=== PATIENT | male | born 1945 | race Two or more races ===

== ENCOUNTER 2018-03-01 13:14 | Emergency (ER) | payer SELFPAY ==
[~2018-03-01] VITALS: Ht 167.6 cm; Wt 113.4 kg
[2018-03-01] MEDS ORDERED: SODIUM BICARBONATE 8.4% INJ 50ML SYRINGE IV ONE (13:15)
[2018-03-01] MEDS ORDERED: EPINEPHrine HCL 1 MG/10 ML SYRG IV ONE (13:15)
[2018-03-01] MEDS ORDERED: CALCIUM CHLOR(10%) 100MG/ML 10ML SYRINGE IV ONE (13:15)
[2018-03-01] MEDS ORDERED: MIDAZOLAM HCL 5 MG/ML-1ML VIAL ONE ×2 (13:20→13:27)
[2018-03-01] MEDS ORDERED: PROPOFOL 100 ML IV SCH (13:26)
[2018-03-01] MEDS ORDERED: MIDAZOLAM DRIP 50 mg/50mL 50 ML IV SCH (13:26)
[2018-03-01 13:35] VITALS: BP 101/75
[2018-03-01] MEDS ORDERED: NOREPINEPHRINE 8 MG/250ML KIT 250 ML IV ONE (13:42)
[2018-03-01 13:52] LABS: Basophils # (auto) 0.1 uL; Basophils % (auto) 0.9 % (0.0-2.0); Eosinophils # (auto) 0.2 uL; Eosinophils % (auto) 1.9 % (0.0-7.0); Hematocrit 43.5 % (41.0-53.0); Hemoglobin 13.8 g/dL (13.5-17.5); Lymphocytes # (auto) 4.9 uL; Lymphocytes % (auto) 41.5 % (10.0-50.0); Mean Corpuscular Hgb Conc. 31.7 g/dL (32.0-36.0); Mean Corpuscular Volume 97.6 fL (80.0-100.0); Monocytes # (auto) 0.8 uL; Monocytes % (auto) 6.9 % (0.0-12.0); Neutrophils # (auto) 5.8 uL; Neutrophils % (auto) 48.8 % (37.0-80.0); Nucleated Red Blood Cells % 0.3 %; Platelet Count (auto) 220 10^3/uL (140-450); Red Blood Cells 4.46 10^6/uL (4.5-5.90); Red Cell Distribution Width 15.1 % (11.8-14.3); White Blood Cell 11.9 10^3/uL (4.4-10.8)
[2018-03-01 14:10] LABS: Albumin 2.7 g/dL (3.4-5.0); Calcium 6.9 mg/dL (8.5-10.1); Magnesium 2.2 mg/dL (1.6-2.6); Potassium 4.3 mmol/L (3.5-5.1)
[2018-03-01 14:12] LABS: Lactic Acid w/Reflex 6.1 mmol/L (0.4-2.0)
[2018-03-01 14:13] LABS: Bilirubin, Total 0.7 mg/dL (0.2-1.0)
[2018-03-01] MEDS ORDERED: EPINEPHrine HCL 1 MG/10 ML SYRG ONE (14:19)
== END 2018-03-01 21:56 | disposition expired ==
LOC: ER 13:14
DX: I46.9 Cardiac arrest, cause unspecified (principal); G92 Toxic encephalopathy; E11.9 Type 2 diabetes mellitus without complications; I10 Essential (primary) hypertension
CPT/HCPCS: 31500; 36415; 70450; 80053; 80320; 83605; 83735; 84484; 85025; 92950; 99291; J0171; J2250; J7030